=== PATIENT | male | born 1940 | race Caucasian/White ===

== ENCOUNTER 2016-07-10 11:43 | Observation (INO) ==
--- NOTE | 2016-07-10 12:02 | Emergency Department Note ---
Disposition Clinical Impression: Atrial fibrillation, Heart failure Disposition: Home, Self-Care Condition: Good Forms: ED Satisfaction Letter Time of Disposition: 13:55 (katherine mckeon) Chest Pain HPI - General Chief Complaint: ED Chest Pain Stated Complaint: cheat pain abnormal EKG Time Seen by Provider: 07/10/16 11:56 Source: patient Mode of arrival: ambulatory Limitations: no limitations Vital Signs Reviewed: Yes Nursing Notes Reviewed: Yes - History of Present Illness HPI Narrative: Patient says he has been sick for couple weeks with family physician today who sent him over to the ER after they had done an EKG patient states that he has had cough congestion some white phlegm production denies any pink or frothy phlegm denies any fever lightheadedness dizziness states that he says shortness of breath unable to lay flat at night denies any cough hemoptysis or sputum production denies diarrhea melena hematochezia hematemesis Pt complaint: chest pain Onset (ago): week(s) (3) Duration: constant, gradually worsening Onset: during exertion, awoke with symptoms Pain Location: left chest Severity scale (1-10): 8 Quality: tightness, aching Pain Radiation: LUE Improves with: nothing Worsens with: exertion, inspiration, supine Associated symptoms: Reports: dyspnea, palpitations. Denies: nausea, vomiting, diaphoresis, sense of impending doom, syncope, fever, cough, leg swelling Treatments prior to arrival chest pain: none - Related Data Home Medications Medication Instructions Recorded Confirmed Aspirin Buffered 325 mg Tab 325 mg PO DAILY 03/27/15 07/10/16 Imdur 60 mg PO DAILY 03/27/15 07/10/16 Lipitor 20 mg PO DAILY 03/27/15 07/10/16 Lisinopril 10 mg PO DAILY 03/27/15 07/10/16 Metoprolol 25 mg PO BID 03/27/15 07/10/16 Naproxen 500 mg PO DAILY 03/27/15 07/10/16 Nitroglycerin 0.4 mg SL PRN PRN 03/27/15 07/10/16 Oxycodone HCl 5 mg PO Q6HR 03/27/15 07/10/16 Plavix 75 mg PO DAILY 03/27/15 07/10/16 Ranexa 1,000 mg PO BID 11/03/15 02/16/17 Zanaflex 1 tab PO DAILY 03/27/15 07/10/16 Zantac 150 mg PO BID 03/27/15 07/10/16 Allergies Allergy/AdvReac Type Severity Reaction Status Date / Time morphine Allergy Unknown Confusion Verified 03/27/15 12:01 All systems ED: reviewed and negative except as stated. Constitutional: Reports: weakness. Denies: fever, chills Eyes: Denies: vision change ENT ED: Denies: ear pain, throat pain Cardiovascular: Reports: chest pain, palpitations, dyspnea on exertion, orthopnea. Denies: edema Respiratory: Reports: cough. Denies: dyspnea, wheezes Gastrointestinal: Denies: abdominal pain, nausea, vomiting Genitourinary: Denies: urgency, dysuria, frequency Musculoskeletal: Denies: back pain, neck pain Integumentary: Denies: rash Neurological: Denies: headache Psychiatric: Denies: anxiety Endocrine: Denies: fatigue Hematological/Lymphatic: Denies: easy bleeding Allergic/Immunologic: Denies: facial swelling Chest Pain PMH - Past Medical History Medical history: Reports: arthritis, CHF, coronary artery disease, hyperlipidemia, hypertension, TIA, other (atrial fib) - Social History Smoking Status: Former smoker Physical Exam - General Limitations: no limitations General appearance: alert, in no apparent distress - Head Head exam: atraumatic, normocephalic, normal inspection - Eye Eye exam: Present: normal appearance, PERRL, EOMI - ENT ENT exam: normal exam, normal oropharynx, mucous membranes moist, TM's normal bilaterally, normal external ear exam - Neck Neck exam: Present: normal inspection, full ROM, trachea midline - Chest Chest inspection: Present: normal inspection, symmetric chest wall rise - Respiratory Respiratory exam: Present: other (Crackles in the bases bilaterally prolonged expiratory phase) - Cardiovascular Cardiovascular exam: Present: regular rate, normal rhythm, normal heart sounds - Abdominal Exam Abdominal exam: Present: soft, Non-Tender, normal bowel sounds - Extremities Exam Extremities exam: Present: normal inspection, full ROM, normal capillary refill. Absent: tenderness, joint swelling - Expanded Upper Extremity Exam Shoulder exam: Present: normal inspection, full ROM Arm exam: Present: normal inspection, full ROM Elbow exam: Present: normal inspection, full ROM Forearm/Wrist exam: Present: normal inspection, full ROM Hand exam: Present: normal inspection, full ROM Vascular exam: Normal: capillary refill, radial pulse - Expanded Lower Extremity Exam Hip/Pelvis exam: Present: normal inspection, full ROM Upper leg exam: Present: normal inspection, full ROM Knee exam: Present: normal inspection, full ROM Lower leg exam: Present: normal inspection, full ROM Ankle exam: Present: normal inspection, full ROM, tenderness, swelling Foot/toe exam: Present: normal inspection, full ROM, tenderness, swelling Neurovascular/Tendon exam: Present: normal capillary refill, normal fine/light touch. Absent: motor deficit, sensory deficit, tendon deficit Gait: observed and normal - Back Exam Back exam: Present: normal inspection, full ROM. Absent: muscle spasm - Neurological Exam Neurological exam: Present: alert, oriented X3, CN II-XII intact - Psychiatric Psychiatric exam: Present: normal affect, normal mood - Skin Skin exam: Present: warm, dry, intact, normal color Course Course Narrative: Agency exam the patient's dose Lasix IV patient rested comfortably with results pending patient will be admitted for observation transferred to [facility] stable condition Vital Signs Temperature 97.6 F 07/10/16 11:46 Pulse Rate 92 07/10/16 11:46 Respiratory Rate 20 07/10/16 11:46 Blood Pressure 138/94 07/10/16 11:46 O2 Sat by Pulse Oximetry 96 07/10/16 11:46 Temperature 97.6 F 07/10/16 12:43 Pulse Rate 92 07/10/16 12:43 Respiratory Rate 20 07/10/16 12:43 Blood Pressure 138/94 07/10/16 12:43 O2 Sat by Pulse Oximetry 96 07/10/16 12:43 Oxygen Delivery Oxygen Delivery Room Air Chest Pain - Differential Diagnosis Likely: unstable angina pectoris, st elevation myocardial infraction, chest pain - Medical Records Medical records reviewed: Yes I reviewed the patient's medical records. - Lab Data Lab results reviewed: Yes I reviewed the patient's lab results. Result diagrams: 07/10/16 12:11 07/10/16 12:11 Lab Results 07/10/16 07/10/16 07/10/16 Range/Units 12:11 12:11 12:11 WBC 8.1 (4.3-11.1) K/mcL RBC 4.02 L (4.19-5.50) M/mcL Hgb 11.0 L (12.9-16.9) g/dL Hct 32.4 L (37.5-50.1) % MCV 80.6 L (83.0-100.0) fL MCH 27.4 L (28.0-33.3) pg MCHC 34.0 (31.6-35.5) g/dL RDW 14.7 H (11.5-14.5) % Plt Count 232 (140-400) K/mcL MPV 10.1 (9.4-12.4) fL Immature Gran % 0.6 (0-4) % Seg Neutrophils % 70.5 % Lymphocytes % 18.0 % Monocytes % 7.0 % Eosinophils % 3.4 % Basophils % 0.5 % Neutrophils # 5.7 (1.6-8.9) K/mcL Lymphocytes # 1.5 (0.6-4.6) K/mcL Monocytes # 0.6 (0.0-1.3) K/mcL Eosinophils # 0.3 (0.0-0.6) K/mcL Basophils # 0.0 (0.0-0.2) K/mcL PT (9.4-12.1) Seconds INR APTT 31.1 (26.0-36.0) Seconds Sodium 133 L (136-145) mEq/L Potassium 4.8 H (3.5-4.5) mEq/L Chloride 101 (98-109) mEq/L Carbon Dioxide 23 (19-29) mEq/L BUN 10 (8-26) mg/dL Creatinine 1.07 (0.72-1.25) mg/dL Est GFR ( Amer) > 60 (> 60) Est GFR (Non-Af Amer) > 60 (> 60) BUN/Creatinine Ratio 9 (6-26) Glucose 105 H (70-99) mg/dL Calculated Osmolality 275 L (280-300) Calcium 8.4 L (8.6-10.8) mg/dL Troponin I (0-0.03) ng/mL B-Natriuretic Peptide (0-100) pg/mL TSH (0.350-4.840) mcIU/mL 07/10/16 07/10/16 07/10/16 Range/Units 12:11 12:11 12:11 WBC (4.3-11.1) K/mcL RBC (4.19-5.50) M/mcL Hgb (12.9-16.9) g/dL Hct (37.5-50.1) % MCV (83.0-100.0) fL MCH (28.0-33.3) pg MCHC (31.6-35.5) g/dL RDW (11.5-14.5) % Plt Count (140-400) K/mcL MPV (9.4-12.4) fL Immature Gran % (0-4) % Seg Neutrophils % % Lymphocytes % % Monocytes % % Eosinophils % % Basophils % % Neutrophils # (1.6-8.9) K/mcL Lymphocytes # (0.6-4.6) K/mcL Monocytes # (0.0-1.3) K/mcL Eosinophils # (0.0-0.6) K/mcL Basophils # (0.0-0.2) K/mcL PT 15.8 H (9.4-12.1) Seconds INR 1.5 APTT (26.0-36.0) Seconds Sodium (136-145) mEq/L Potassium (3.5-4.5) mEq/L Chloride (98-109) mEq/L Carbon Dioxide (19-29) mEq/L BUN (8-26) mg/dL Creatinine (0.72-1.25) mg/dL Est GFR ( Amer) (> 60) Est GFR (Non-Af Amer) (> 60) BUN/Creatinine Ratio (6-26) Glucose (70-99) mg/dL Calculated Osmolality (280-300) Calcium (8.6-10.8) mg/dL Troponin I 0.00 (0-0.03) ng/mL B-Natriuretic Peptide 342 H (0-100) pg/mL TSH (0.350-4.840) mcIU/mL 07/10/16 Range/Units 12:11 WBC (4.3-11.1) K/mcL RBC (4.19-5.50) M/mcL Hgb (12.9-16.9) g/dL Hct (37.5-50.1) % MCV (83.0-100.0) fL MCH (28.0-33.3) pg MCHC (31.6-35.5) g/dL RDW (11.5-14.5) % Plt Count (140-400) K/mcL MPV (9.4-12.4) fL Immature Gran % (0-4) % Seg Neutrophils % % Lymphocytes % % Monocytes % % Eosinophils % % Basophils % % Neutrophils # (1.6-8.9) K/mcL Lymphocytes # (0.6-4.6) K/mcL Monocytes # (0.0-1.3) K/mcL Eosinophils # (0.0-0.6) K/mcL Basophils # (0.0-0.2) K/mcL PT (9.4-12.1) Seconds INR APTT (26.0-36.0) Seconds Sodium (136-145) mEq/L Potassium (3.5-4.5) mEq/L Chloride (98-109) mEq/L Carbon Dioxide (19-29) mEq/L BUN (8-26) mg/dL Creatinine (0.72-1.25) mg/dL Est GFR ( Amer) (> 60) Est GFR (Non-Af Amer) (> 60) BUN/Creatinine Ratio (6-26) Glucose (70-99) mg/dL Calculated Osmolality (280-300) Calcium (8.6-10.8) mg/dL Troponin I (0-0.03) ng/mL B-Natriuretic Peptide (0-100) pg/mL TSH 1.585 (0.350-4.840) mcIU/mL - Radiology Data Radiology results reviewed: Yes I reviewed the patient's radiology results. Test x-ray from earlier today was reviewed showing cardiomegaly and there also appears to be homeless cephalization and increased interstitial markings in the basilar regions most likely consistent with early congestive heart failure - EKG Data EKG attestation: Yes I reviewed and interpreted this EKG. EKG results narrative: Atrial fib rate 80 QRS 89 QT 366 access five Heart Score - Score History: Slightly Suspicious EKG: Non Specific repolarisation Disturbance Age: Greater than 65 Risk Factors: Equal/Greater than 3 risk factor or history of atherosclerotic disease Troponin: Less than normal limit HEART Score Total: 5 Critical Care Time Critical Care Time: No
[2016-07-10 12:25] LABS: Basophils % 0.5 %; Eosinophils # 0.3 K/mcL (0.0-0.6); Eosinophils % 3.4 %; Hematocrit 32.4 % (37.5-50.1); Immature Granulocytes % 0.6 % (0-4); Lymphocytes # 1.5 K/mcL (0.6-4.6); Mean Corpuscular Hemoglobin 27.4 pg (28.0-33.3); Mean Corpuscular Volume 80.6 fL (83.0-100.0); Mean Platelet Volume 10.1 fL (9.4-12.4); Monocytes # 0.6 K/mcL (0.0-1.3); Neutrophils # 5.7 K/mcL (1.6-8.9); Platelet Count 232 K/mcL (140-400); Red Blood Count 4.02 M/mcL (4.19-5.50); Red Cell Distribution Width 14.7 % (11.5-14.5); Segmented Neutrophils % 70.5 %
[2016-07-10 12:30] LABS: INR 1.5; Prothrombin Time 15.8 Seconds (9.4-12.1)
[2016-07-10 12:37] LABS: BUN/Creatinine Ratio 9 (6-26); Blood Urea Nitrogen 10 mg/dL (8-26); Calcium 8.4 mg/dL (8.6-10.8); Carbon Dioxide 23 mEq/L (19-29); Chloride 101 mEq/L (98-109); Glucose 105 mg/dL (70-99); Osmolality,Calculated 275 (280-300); Potassium 4.8 mEq/L (3.5-4.5); Sodium 133 mEq/L (136-145); eGFR For African Americans > 60 (> 60); eGFR For Non-African Americans > 60 (> 60)
[2016-07-10] MEDS ORDERED: Bumetanide 1 MG/4 ML VIAL IVP ONE (13:57)
[2016-07-10] MEDS ORDERED: Ondansetron 4 MG/2 ML VIAL IVP PRN (14:47)
[2016-07-10] MEDS ORDERED: Nitroglycerin 0.4 MG TAB.SUBL SL PRN (14:47)
[2016-07-10] MEDS ORDERED: Acetaminophen 325 MG TABLET PO PRN (14:47)
[2016-07-10] MEDS ORDERED: Naloxone 0.4 MG/ML INJ IVP PRN (14:47)
[2016-07-10] MEDS ORDERED: 0.9 % Sodium Chloride 1,000 ML IVC SCH (14:47)
[2016-07-10] MEDS: Bumetanide 1 MG/4 ML VIAL IVP SCH (16:40)
--- NOTE | 2016-07-10 16:52 | Internal Med History&Physical ---
Date of Encounter: 07/10/16 Time of Encounter: 15:40 Assessment and Plan (1) Diastolic heart failure Current visit: Yes Status: Chronic He has been started on IV Bumex. Doses of metoprolol and isosorbide will be increased. Further workup will be done as needed.. Qualifiers: Heart failure chronicity: acute on chronic Qualified Code(s): I50.33 - Acute on chronic diastolic (congestive) heart failure (2) Atrial fibrillation Current visit: Yes Status: Chronic He does not know why he is not taking OAC. Will increase metoprolol as above for improvement in blood pressure and rate control. Qualifiers: Atrial fibrillation type: paroxysmal Qualified Code(s): I48.0 - Paroxysmal atrial fibrillation (3) Microcytic anemia Current visit: Yes Status: Acute Suspect iron deficiency from use of aspirin, Plavix, and naproxen. We will check anemia testing in a.m. Hold naproxen (4) Hypertension Current visit: Yes Status: Chronic Will increase medication doses as per above and monitor blood pressure Qualifiers: Hypertension type: essential hypertension Qualified Code(s): I10 - Essential (primary) hypertension Internal Medicine - H&P: HPI Chief complaint: Dyspnea and cough Admitted From: Home Plans for Post Hospital Care: Home History of present illness: Mr. Cunningham is a 75 year old male who was sent to the emergency room from his PCP office after he presented with a one-month history of increasing dyspnea with cough. The cough is minimally productive. He was evaluated in emergency room and felt to have heart failure and atrial fibrillation. He was admitted to [facility] for ongoing care needs. His respiratory history significant for having smoked from approximately age 8- 33. He has a diagnosis of "mild COPD" but does not wear home oxygen. He denies other chronic lung disease. His cardiovascular history is significant for hypertension. He has history of atrial fibrillation which apparently has been paroxysmal in nature. He had a [facility] with [facility]/EMBER to the circumflex ostia in November 2014. He reports a total of 3 coronary stents. Denies PA heart failure DVT or pulmonary embolus. He had an echocardiogram 07/15/2014 which showed LVEF 65% with mild mitral regurgitation and indeterminate diastolic function due to atrial fibrillation. Past Med Surg Social Fam HX - Past Medical History Medical history: arthritis, CHF, coronary artery disease, hyperlipidemia, hypertension, TIA, other - Social History Smoking Status: Former smoker Alcohol use: none Drug use: none - Family History Mother Brother Hx Family Cardiac Disorders: Yes Hx Family GI Disorders: Yes Internal Medicine - H&P: Meds Aspirin Buffered 325 mg Tab 325 mg PO DAILY 03/27/15 [History] Imdur 60 mg PO DAILY 03/27/15 [History] Lipitor 20 mg PO DAILY 03/27/15 [History] Lisinopril 10 mg PO DAILY 03/27/15 [History] Metoprolol 25 mg PO BID 03/27/15 [History] Naproxen 500 mg PO DAILY 03/27/15 [History] Nitroglycerin 0.4 mg SL PRN PRN 03/27/15 [History] Oxycodone HCl 5 mg PO Q6HR 03/27/15 [History] Plavix 75 mg PO DAILY 03/27/15 [History] Ranexa 1,000 mg PO BID 03/27/15 [History] Zanaflex 2 mg PO DAILY PRN 03/27/15 [History] Zantac 150 mg PO BID 03/27/15 [History] Allergies morphine Adverse Reaction (Unknown, Verified 07/10/16 15:31) Confusion All Systems PM: A 10-system review of systems was performed and is negative for pertinent findings except as documented above in the HPI. Review of systems: Gen.: He states his weight has been stable the past few months Cardiovascular: As per history of present illness Respiratory: As per history of present illness GI: He has occasional GERD symptoms. He denies disorders of his liver gallbladder or exocrine pancreas. : He denies hematuria dysuria or kidney stones Neurologic: He claims he had a stroke in 1974 leaving him with slight right- sided weakness. He denies seizures Endocrine: He has hyperlipidemia but denies diabetes or thyroid disease Hematology/oncology: He has anemia but denies internal malignancies or other blood disorders Musculoskeletal: He has diagnoses of HNP but has had no surgery. He has DJD but no known gout or other bone joint or muscle disorders. Psychiatric: He denies anxiety depression or other mental health issues - Constitutional Vitals: Temp Pulse Resp BP Pulse Ox 97.3 F L 93 18 141/95 99 07/10/16 16:15 07/10/16 16:15 07/10/16 16:15 07/10/16 16:15 07/10/16 16:15 Exam: Gen.: He is a well-developed well-nourished male who appears in no severe distress at present time. HEENT: Head is atraumatic and normocephalic. Eyes: EOMI. There is no scleral icterus. Mouth: Mucosa is moist. Neck: Supple and nontender. There is no thyromegaly or adenopathy noted. Heart: Irregularly irregular without murmurs or gallops. Lungs: No wheezes or crackles are heard. Abdomen: Soft and nontender. No masses or guarding are noted. Extremities: There is no cyanosis edema or clubbing noted. Dorsalis pedis and posterior tibial pulses are trace to 1+ palpable bilaterally. Neurologic: Mental status: He is talkative and a good historian. Cranial nerves : Smile is symmetric. Forehead wrinkles bilaterally. Tongue protrudes midline. EOMI. Motor: There is no pronator drift. Cerebellar: Finger to nose is intact bilaterally. Skin: Warm and dry Internal Med - H&P Results - Labs CBC & Chem 7: 07/10/16 12:11 07/10/16 12:11
[2016-07-10] MEDS ORDERED: *HR* OxyCODONE Immed Rel 5 MG TABLET PO SCH (18:00)
[2016-07-10] MEDS: Ranolazine 500 MG TAB.ER.12H PO SCH (21:49)
[2016-07-10] MEDS: Famotidine 20 MG TABLET PO SCH (21:49)
[2016-07-10] MEDS: *HR* OxyCODONE Immed Rel 5 MG TABLET PO PRN (21:52)
[2016-07-11 05:57] LABS: Basophils # 0.1 K/mcL (0.0-0.2); Basophils % 0.7 %; Eosinophils # 0.5 K/mcL (0.0-0.6); Eosinophils % 6.5 %; Hematocrit 33.8 % (37.5-50.1); Hemoglobin 11.5 g/dL (12.9-16.9); Immature Granulocytes % 0.4 % (0-4); Lymphocytes # 1.3 K/mcL (0.6-4.6); Mean Corpuscular Hemoglobin 27.3 pg (28.0-33.3); Mean Corpuscular Volume 80.1 fL (83.0-100.0); Mean Platelet Volume 10.8 fL (9.4-12.4); Monocytes # 0.8 K/mcL (0.0-1.3); Monocytes % 10.6 %; Neutrophils # 4.6 K/mcL (1.6-8.9); Platelet Count 233 K/mcL (140-400); Red Blood Count 4.22 M/mcL (4.19-5.50); Red Cell Distribution Width 14.7 % (11.5-14.5); Segmented Neutrophils % 63.8 %
[2016-07-11 06:14] LABS: BUN/Creatinine Ratio 10 (6-26); Blood Urea Nitrogen 10 mg/dL (8-26); Calcium 8.6 mg/dL (8.6-10.8); Carbon Dioxide 24 mEq/L (19-29); Chloride 102 mEq/L (98-109); Glucose 108 mg/dL (70-99); Magnesium 1.7 mg/dL (1.6-2.6); Osmolality,Calculated 278 (280-300); Potassium 4.5 mEq/L (3.5-4.5); Sodium 134 mEq/L (136-145); eGFR For African Americans > 60 (> 60); eGFR For Non-African Americans > 60 (> 60)
[2016-07-11] MEDS ORDERED: Isosorbide MONOnitrate (24 HR) 60 MG TAB.ER.24H PO SCH ×2 (09:00)
[2016-07-11] MEDS ORDERED: Aspirin Enteric Coated 325 MG Tablet PO SCH (09:00)
[2016-07-11] MEDS: Bumetanide 1 MG/4 ML VIAL IVP SCH (11:16)
[2016-07-11 11:17] VITALS: BP 149/89
[2016-07-11] MEDS: Ranolazine 500 MG TAB.ER.12H PO SCH (11:17)
[2016-07-11] MEDS: Famotidine 20 MG TABLET PO SCH (11:17)
[2016-07-11] MEDS: *HR* OxyCODONE Immed Rel 5 MG TABLET PO PRN (11:27)
[2016-07-11 12:05] LABS: % Iron Saturation 20 % (20-55); Iron 70 mcg/dL (65-175); Transferrin 251 mg/dL (174-364)
[2016-07-11 12:26] LABS: Ferritin 21 ng/ml (22-275)
[2016-07-11 12:47] LABS: Folate 7.5 ng/mL (7.0-31.4)
--- NOTE | 2016-07-11 14:21 | Discharge Summary ---
Date of Encounter: 07/11/16 Time of Encounter: 14:05 - Discharge Diagnosis (1) Diastolic heart failure Priority: Primary Status: Chronic Qualifiers: Heart failure chronicity: acute on chronic Qualified Code(s): I50.33 - Acute on chronic diastolic (congestive) heart failure (2) Atrial fibrillation Priority: Secondary Status: Chronic Qualifiers: Atrial fibrillation type: paroxysmal Qualified Code(s): I48.0 - Paroxysmal atrial fibrillation (3) Microcytic anemia Priority: Secondary Status: Acute (4) Hypertension Priority: Secondary Status: Chronic Qualifiers: Hypertension type: essential hypertension Qualified Code(s): I10 - Essential (primary) hypertension - Discharge Medications Prescriptions: Bumetanide [Bumex] 0.5 mg PO DAILY #15 tablet Isosorbide MONOnitrate (24 HR) [Imdur] 120 mg PO DAILY #60 tab.er.24h Metoprolol Succinate 100 mg PO DAILY #30 tab.er.24h Home Medications: Aspirin Buffered 325 mg Tab 325 mg PO DAILY 03/27/15 [History] Lipitor 20 mg PO DAILY 03/27/15 [History] Lisinopril 10 mg PO DAILY 03/27/15 [History] Naproxen 500 mg PO DAILY 03/27/15 [History] Nitroglycerin 0.4 mg SL PRN PRN 03/27/15 [History] Oxycodone HCl 5 mg PO Q6HR 03/27/15 [History] Plavix 75 mg PO DAILY 03/27/15 [History] Ranexa 1,000 mg PO BID 03/27/15 [History] Zanaflex 2 mg PO DAILY PRN 03/27/15 [History] Zantac 150 mg PO BID 03/27/15 [History] Bumetanide [Bumex] 0.5 mg PO DAILY #15 tablet 07/11/16 [Rx] Isosorbide MONOnitrate (24 HR) [Imdur] 120 mg PO DAILY #60 tab.er.24h 07/11/16 [ Rx] Metoprolol Succinate 100 mg PO DAILY #30 tab.er.24h 07/11/16 [Rx] Allergies/Adverse Reactions: Allergies morphine Adverse Reaction (Unknown, Verified 07/10/16 15:31) Confusion Date of admission: 07/10/16 14:28 Primary care physician: Steff Dos Santos CNP - Patient Status Disposition: Home, Self-Care Condition: Good Functional capacity at discharge: independent ambulation Overall status at discharge: patient is progressing back to baseline - Discharge Instructions Follow Up With: NO,PCP [Primary Care Provider] - 1 week - Diet and Activity Activity: resume usual activities as tolerated Diet: advance to your usual diet Hospital course: Mr. Cunningham is a 75 year old male who was sent to the emergency room from his PCP office after he presented with a one-month history of increasing dyspnea with cough. The cough is minimally productive. He was evaluated in emergency room and felt to have heart failure and atrial fibrillation. He was admitted to [facility] for ongoing care needs. Initial orders were written by the emergency room physician. I saw him on July 10 and performed the history and physical. He was started on IV Bumex for diastolic heart failure. His metoprolol dose was increased to 50 mg twice a day and isosorbide dose was increased 120 mg daily. He was improved when I saw him on July 11. He felt stable for discharge home. He reported at the time of discharge that he did have oxygen available at home for prn use. He was maintained on aspirin and Plavix. Naprosyn was discontinued. His hemoglobin improved to 11.5 on July 11. Anemia testing showed iron 70, transferrin saturation 20%, ferritin 21, B12 255, and folate 7.5. He was uncertain why he was not taking OAC for atrial fibrillation. His ventricular rate remained controlled on metoprolol. I will continue aspirin and Plavix for now. I will let him discuss with his PCP the use of anticoagulation for CVA prophylaxis. On July 11 he was stable for discharge home. He will follow with his PCP within one week. - Time Spent with Patient Total time spent providing and/or coordinating discharge services: - Constitutional Vitals: Temp Pulse Resp BP Pulse Ox 97.3 F L 82 18 149/89 99 07/11/16 11:00 07/11/16 11:00 07/11/16 11:00 07/11/16 11:07/11/16 11:00
== END 2016-07-11 16:20 | disposition home or self-care (01) ==
LOC: INPPIK 11:43 → EMEROOPIK 11:43 → INPPIK 15:36
PROVIDERS: ADMIT Internal Medicine; ATTEND Internal Medicine